=== PATIENT | male | born 1965 | race Caucasian/White ===

== ENCOUNTER 2017-05-29 00:30 | Emergency (ER) | payer OTHER ==
[2017-05-29] MEDS ORDERED: traMADol TAB* 50 MG PO ONE (01:41)
[2017-05-29 03:58] VITALS: BP 127/68
--- NOTE | 2017-05-29 15:29 | ED ---
Suman Barillas Gabriel, scribed for Juan Amezcua MD on 05/29/17 at 0152 . Lower Extremity - HPI Summary HPI Summary: This patient is a 51 year old M presenting to [facility] with a chief complaint of RLE pain that began 2 days ago. The patient was playing soccer yesterday and he was kneed in the upper part of right quad. The patient rates the pain 8/10 in severity. Pt states pain and swelling has increased since yesterday with painful ROM. - History of Current Complaint Chief Complaint: EDExtremityLower Stated Complaint: RT LEG INJURY Time Seen by Provider: 05/29/17 01:28 Hx Obtained From: Patient Onset/Duration: Worse Since - today Severity Initially: Moderate Severity Currently: Moderate Pain Intensity: 8 Pain Scale Used: 0-10 Numeric Timing: Constant - ` Associated Signs And Symptoms: Positive: Swelling, Other - hard mass on the thigh Able to Bear Weight: Yes - Allergies/Home Medications Allergies/Adverse Reactions: Allergies Allergy/AdvReac Type Severity Reaction Status Date / Time No Known Allergies Allergy Verified 05/29/17 00:36 PMH/Surg Hx/FS Hx/Imm Hx History: Denies: Hx Acute Renal Failure Musculoskeletal History: Denies: Hx Arthritis Infectious Disease History: No Infectious Disease History: Denies: Traveled Outside the [place] in Last 30 Days - Family History Known Family History: Negative: Blood Disorder - Social History Lives: With Family Alcohol Use: None Substance Use Type: Reports: None Smoking Status (MU): Never Smoked Tobacco Review of Systems Musculoskeletal: Negative - knee pain Positive: Other - hard mass on the right thigh Positive: Other - swelling All Other Systems Reviewed And Are Negative: Yes Physical Exam - Summary Physical Exam Summary: Appearance: Well-appearing, no distress, Well-nourished Skin: Warm, color reflects adequate perfus Respiratory: Lungs clear, Normal breath sounds, no respiratory distress Cardio: RRR, No murmur, pulses normal, brisk capillary refill Musculoskeletal: Strength Intact/ ROM intact. No calf tenderness. No edema. 10x8 cm area of swelling and tenderness at the right anterior thigh; no warmth or erythema; 2+ dp pulses Neuro: Alert, muscle tone normal Psychological: Normal Triage Information Reviewed: Yes Vital Signs On Initial Exam: Initial Vitals Temp Pulse Resp BP Pulse Ox 97.6 F 81 18 107/95 100 05/29/17 00:33 05/29/17 00:33 05/29/17 00:33 05/29/17 00:33 05/29/17 00:33 Vital Signs Reviewed: Yes Procedures - Ultrasound Ultrasound: normal - Bedside US negative for large hematoma at right anterior thigh Diagnostics - Vital Signs Vital Signs Temp Pulse Resp BP Pulse Ox 05/29/17 00:33 97.6 F 81 18 107/95 100 - Laboratory Lab Statement: Any lab studies that have been ordered have been reviewed, and results considered in the medical decision making process. Re-Evaluation - Re-Evaluation First Eval Change: Improved - Pt's pain improved with po analgesia. pt symptoms consistent with deep muscle contusion. Lower Extremity Course/Dx - Course Assessment/Plan: Plan for symptomatic tx with ice/heat, diana wrap, rest with oral pain control. - Diagnoses Differential Diagnosis/HQI/PQRI: Positive: Arthritis, Contusion, Sprain, Strain , Tendonitis Provider Diagnoses: Contusion Discharge - Discharge Plan Condition: Improved Disposition: HOME Prescriptions: Ibuprofen TAB* [Motrin TAB* 800 MG] 800 mg PO ONCE PRN 3 Days #20 tab PRN Reason: Pain traMADol TAB* [Ultram*] 50 mg PO Q6HR PRN 3 Days #10 tab MDD 200 mg PRN Reason: Pain Patient Education Materials: Contusion in Adults (ED) Referrals: Juaquin Diamond MD [Primary Care Provider] - 3 Days The documentation as recorded by the Suman torres Gabriel accurately reflects the service I personally performed and the decisions made by , Juan Amezcua MD.
== END 2017-05-29 03:58 | disposition home or self-care (01) ==
LOC: ED 00:30
DX: S70.11XA Contusion of right thigh, initial encounter (principal); W50.0XXA Accidental hit or strike by another person, initial encounter; Y93.66 Activity, soccer; Y92.838 Other recreation area as the place of occurrence of the external cause
CPT/HCPCS: 99282; A9270-GY